=== PATIENT | male | born 1985 | race African-American/Black ===

== ENCOUNTER 2018-12-06 02:58 | Emergency (ER) | payer SELFPAY ==
[~2018-12-06] VITALS: Ht 177.8 cm; Wt 90.0 kg
[2018-12-06] MEDS ORDERED: IBUPROFEN 600MG TABLET PO ONE (05:00)
[2018-12-06 07:04] VITALS: BP 123/77
== END 2018-12-06 07:07 | disposition home or self-care (01) ==
LOC: ER 02:58
DX: S89.81XA Other specified injuries of right lower leg, initial encounter (principal); W50.2XXA Accidental twist by another person, initial encounter; Y93.89 Activity, other specified; Y92.89 Other specified places as the place of occurrence of the external cause; Y99.8 Other external cause status
CPT/HCPCS: 73562; 99283